=== PATIENT | male | born 1955 | race Caucasian/White ===

== ENCOUNTER → 2021-12-22 | Outpatient (CLI) | payer MEDICARE | LOC: HEART 5 14:41 | DX: R06.02 Shortness of breath (principal) | CPT/HCPCS: 94010 ==

== ENCOUNTER → 2022-01-05 | Outpatient (CLI) | payer MEDICARE ==
[~2022-01-05] MED LIST: DOXEPIN HCL100 MG PO; FENOFIBRATE48 MG PO; FUROSEMIDE20 MG PO; GABAPENTIN300 MG PO; HYDROCHLOROTHIA25 MG PO; LIPITOR TAB 2020 MG PO; LOSARTAN POTAS100 MG PO; METOPROLOL TAR100 MG PO; PERCOCET 10-321 EACH PO; PROAIR HFA8.5 GM INH
[2022-01-05 10:18] LABS: BUN/CREATININE RATIO 9 (0-10)
== END ==
LOC: OPSV2 08:30
PROVIDERS: Anesthesiology
DX: Z01.818 Encounter for other preprocedural examination (principal); R91.1 Solitary pulmonary nodule
CPT/HCPCS: 36415; 80048; 93005

== ENCOUNTER → 2022-01-06 | Day surgery (SDC) | payer MEDICARE | END | disposition home or self-care (01) | LOC: OR 01-05 07:30 | DX: C34.31 Malignant neoplasm of lower lobe, right bronchus or lung (principal); F17.210 Nicotine dependence, cigarettes, uncomplicated; E78.5 Hyperlipidemia, unspecified; I10 Essential (primary) hypertension; Z88.0 Allergy status to penicillin; Z79.899 Other long term (current) drug therapy | CPT/HCPCS: 71045; 71046; 76000; J1100; J2001; J2250; J2405; J2704; J2710; J3010 ==

== ENCOUNTER 2022-03-13 09:05 | Emergency (ER) | payer MEDICARE ==
[2022-03-13 10:59] LABS: RED BLOOD COUNT 3.94 M/UL (4.20-5.50); WHITE BLOOD COUNT 7.9 K/UL (4.5-11.0)
[2022-03-13] MEDS ORDERED: METRONIDAZOLE500 MG PO (13:53)
[2022-03-13] MEDS ORDERED: FLOMAX 0.4 MG0.4 MG PO (13:53)
[2022-03-13 15:59] LABS: ADENOVIRUS F 40/41 Not Detected (Negative); ASTROVIRUS Not Detected (Negative); CAMPYLOBACTER Not Detected (Negative); CRYPTOSPORIDIUM Not Detected (Negative); E.COLI 0157 Not Detected (Negative); ENTAMOEBA HISTOLYTICA Not Detected (Negative); ENTEROAGGREGATIVE E.COLI (EAEC Not Detected (Negative); ENTEROPATHOGENIC E.COLI (EPEC) Not Detected (Negative); ENTEROTOXIGENIC E.COLI (ETEC) Not Detected (Negative); GIARDIA LAMBLIA Not Detected (Negative); PLESIOMONAS SHIGELLOIDES Not Detected (Negative); ROTOVIRUS A Not Detected (Negative); SALMONELLA Not Detected (Negative); SAPOVIRUS Not Detected (Negative); SHIG/ENTEROINVAS.ECOLI (EIEC) Not Detected (Negative); SHIGA-LIK TOX.PRO.E.COLI (STEC Not Detected (Negative); VIBRIO Not Detected (Negative); VIBRIO CHOLERAE Not Detected (Negative); YERSINIA ENTEROCOLITICA Not Detected (Negative)
[2022-03-13 17:26] LABS: CLOSTRIDIUM DIFFICILE TOX A/B Not Detected (Negative); NOROVIRUS GI/GII DETECTED (Negative)
== END 2022-03-13 15:54 | disposition home or self-care (01) ==
LOC: ER1 09:05
PROVIDERS: Nurse Practitioner
DX: K51.00 Ulcerative (chronic) pancolitis without complications (principal); N13.2 Hydronephrosis with renal and ureteral calculous obstruction; R91.1 Solitary pulmonary nodule; Z20.822 Contact with and (suspected) exposure to COVID-19; E78.5 Hyperlipidemia, unspecified; I10 Essential (primary) hypertension; Z85.118 Personal history of other malignant neoplasm of bronchus and lung; Z88.0 Allergy status to penicillin
CPT/HCPCS: 71045; 80053; 81001; 82550; 82553; 83605; 83690; 84484; 85025; 85652; 86140; 87040; 87086; 87507; 93005; 96374; 99284; Q9967; U0002